=== PATIENT | male | born 1975 | race Caucasian/White ===

== ENCOUNTER 2017-11-21 01:16 | Emergency (ER) | payer OTHER ==
[~2017-11-21] VITALS: Ht 172.7 cm; Wt 83.9 kg
[2017-11-21] MEDS ORDERED: PRILOSEC20 M1 PO (01:28)
[2017-11-21] MEDS ORDERED: PREDNISONE10 MG PO (01:54)
[2017-11-21] MEDS ORDERED: KETOROLAC10 MG PO (01:54)
[2017-11-21 02:21] LABS: BASO % 0.3 % (0.0-1.0); EOS # 0.2 10*3/uL (0.0-0.4); EOS % 2.1 % (1.0-4.0); HEMATOCRIT 42.6 % (42.0-52.0); HEMOGLOBIN 15.3 g/dl (14.0-18.0); LYMPH # 2.7 10*3/uL (1.3-4.4); LYMPH % 29.7 % (27.0-41.0); MEAN CELL VOLUME 88.4 fl (80.0-94.0); MEAN CORPUSCULAR HGB 31.7 pg (27.0-31.0); MEAN CORPUSCULAR HGB CONC 35.9 g/dl (33.0-37.0); MEAN PLATELET VOLUME 11.1 fl (9.6-12.3); MONO # 0.7 10*3/uL (0.1-1.0); MONO % 8.1 % (3.0-9.0); NEUT # 5.4 10*3/uL (2.3-7.9); NEUT % 59.6 % (47.0-73.0); PLATELET COUNT AUTOMATED 238 10*3/uL (130-400); RED BLOOD COUNT 4.82 10*6/uL (4.50-5.90); RED CELL DISTRI WIDTH 13.1 % (0-14.5); WHITE BLOOD COUNT 9.1 10*3/uL (4.8-10.8)
[2017-11-21 02:33] LABS: CHLORIDE 104 mmol/L (98-107); CREATININE 1.27 mg/dL (0.70-1.30); POTASSIUM 3.5 mmol/L (3.5-5.1); SODIUM 142 mmol/L (136-145)
[2017-11-21 02:41] LABS: BUN 16 mg/dl (7-24)
[2017-11-21 03:06] LABS: URIC ACID 8.4 mg/dL (3.5-7.2)
== END 2017-11-21 02:24 | disposition home or self-care (01) ==
LOC: ED 01:16
PROVIDERS: Emergency Medicine Emergency Medical Services
DX: M10.9 Gout, unspecified (principal); Z79.899 Other long term (current) drug therapy

== ENCOUNTER 2025-06-10 12:00 | Emergency (ER) | payer OTHER ==
[~2025-06-10] VITALS: Ht 172.7 cm; Wt 83.9 kg
[~2025-06-10 12:00] MED LIST: KETOROLAC10 MG PO; PREDNISONE10 MG PO; PRILOSEC20 M1 PO
[2025-06-10] MEDS ORDERED: Ondansetron Hydrochloride 4 MG/2 ML VIAL IV ONE (12:25)
[2025-06-10 12:56] LABS: BASO # 0.0 10*3/uL (0.0-0.1); BASO % 0.2 % (0.0-1.0); EOS # 0.1 10*3/uL (0.0-0.4); EOS % 0.4 % (1.0-4.0); MEAN CELL VOLUME 90.4 fl (80.0-94.0); MEAN CORPUSCULAR HGB 30.0 pg (27.0-31.0); MEAN PLATELET VOLUME 10.6 fl (9.6-12.3); MONO # 0.6 10*3/uL (0.1-1.0); MONO % 3.1 % (3.0-9.0); NEUT # 15.1 10*3/uL (2.3-7.9); NEUT % 81.2 % (47.0-73.0); NUCLEATED RED BLOOD CELL 0.0 % (0.0-0.0); NUCLEATED RED BLOOD CELL 0.0 10*3/uL (0.0-0.0); PLATELET COUNT AUTOMATED 252 10*3/uL (130-400); RED CELL DISTRI WIDTH 13.0 % (0-14.5)
[2025-06-10 13:14] LABS: BUN 13 mg/dl (9-23)
[2025-06-10 13:49] LABS: BILIRUBIN 1+ (Negative); BLOOD 2+ (Negative); CLARITY Clear (Clear); COLOR Dark Yellow (Yellow); KETONE Trace (Negative); LEUKO ESTERASE Negative (Negative); NITRITE Negative (Negative); PH 5.5 (4.5-8.0); SPECIFIC GRAVITY >= 1.030 (1.001-1.030); UROBILINOGEN 0.2 E.U./dl (0.0-1.0)
[2025-06-10 14:04] LABS: MUCOUS 2+; RBC 51-100 rbc/hpf (0-2)
[2025-06-10] MEDS ORDERED: NAPROXEN250 MG PO (14:24)
[2025-06-10] MEDS ORDERED: TAMSULOSIN HCL0.4 MG PO (14:24)
[2025-06-10] MEDS ORDERED: Ondansetron4 MG PO (14:24)
== END 2025-06-10 14:29 | disposition home or self-care (01) ==
LOC: ED 12:00
PROVIDERS: Student in an Organized Health Care Education/Training Program
DX: N20.0 Calculus of kidney (principal); M10.9 Gout, unspecified